=== PATIENT | male | born 1950 | race Caucasian/White ===

== ENCOUNTER 2021-12-11 23:07 | Emergency (ER) | payer OTHER ==
[~2021-12-11 23:07] MED LIST: BACTRIM 400-801 EACH PO; NORCO 5-325 TA1 EACH PO; ZOFRAN ODT 4 MG4 MG SL
[2021-12-12 00:11] LABS: HEMOGLOBIN 12.4 gm/dl (14.0-17.5); RED BLOOD COUNT 3.68 M/UL (4.20-5.50); WHITE BLOOD COUNT 7.5 K/UL (4.5-11.0)
== END 2021-12-12 03:15 | disposition home or self-care (01) ==
LOC: ER1 23:07
PROVIDERS: Family Medicine
DX: S39.012A Strain of muscle, fascia and tendon of lower back, initial encounter (principal); I48.91 Unspecified atrial fibrillation; R91.1 Solitary pulmonary nodule; F17.200 Nicotine dependence, unspecified, uncomplicated; N28.9 Disorder of kidney and ureter, unspecified; Z95.0 Presence of cardiac pacemaker; Z95.1 Presence of aortocoronary bypass graft; Z79.01 Long term (current) use of anticoagulants; X58.XXXA Exposure to other specified factors, initial encounter
CPT/HCPCS: 71045; 80053; 81001; 82550; 82553; 82962; 84484; 85025; 93005; 99284

== ENCOUNTER → 2021-12-22 | Outpatient (CLI) | payer OTHER | LOC: KOH-I 13:16 | DX: F17.210 Nicotine dependence, cigarettes, uncomplicated (principal); R91.8 Other nonspecific abnormal finding of lung field | CPT/HCPCS: 71271 ==